=== PATIENT | female | born 1950 | race Two or more races ===

== ENCOUNTER → 2024-03-30 | Outpatient (CLI) | payer OTHER, SELFPAY ==
[2024-03-30 16:27] LABS: Anion Gap 6 (7-16); BUN/Creatinine Ratio 20 Ratio (12-20); Blood Urea Nitrogen 22 mg/dL (9-23); Calcium 9.5 mg/dL (8.3-10.6); Carbon Dioxide 25.7 mMol/L (20.0-31.0); Chloride 106 mMol/L (98-107); Creatinine (Component) 1.1 mg/dL (0.6-1.3); Glucose 92 mg/dL (74-106); Osmolality,Calculated 278 (275-295); Potassium 4.4 mMol/L (3.4-5.1); Sodium 138 mMol/L (136-145); eGFR 53 See Note
== END | disposition home or self-care (01) ==
PROVIDERS: PCP Family Medicine; Referring Provider Family Medicine; Visit Provider Family Medicine
DX: N18.2 Chronic kidney disease, stage 2 (mild) (principal)
CPT/HCPCS: 36415; 80048

== ENCOUNTER → 2024-04-14 | Outpatient (CLI) | payer OTHER, SELFPAY ==
--- NOTE | 2024-04-14 16:28 | XR_ITS ---
Examination: PA lateral chest 2 views Technique: Upright AP lateral chest 2 views Exam date and time: April 14, 2024 1717 hrs. Indications: Coughing congestion 2 months. Findings: Pneumonia in the posterior basal segment left lower lobe Right lung clear Normal heart size Impression: Pneumonia posterior basal segment left lower lobe
== END | disposition home or self-care (01) ==
LOC: CDIM 16:24
PROVIDERS: Referring Provider Family Medicine; Visit Provider Family Medicine
DX: J18.9 Pneumonia, unspecified organism (principal)
CPT/HCPCS: 71046

== ENCOUNTER → 2024-09-04 | Outpatient (CLI) | payer OTHER, SELFPAY ==
[2024-09-04 10:59] LABS: Anion Gap 10 (7-16); BUN/Creatinine Ratio 14 Ratio (12-20); Blood Urea Nitrogen 15 mg/dL (9-23); Calcium 9.4 mg/dL (8.3-10.6); Carbon Dioxide 25.1 mMol/L (20.0-31.0); Chloride 103 mMol/L (98-107); Creatinine (Component) 1.1 mg/dL (0.6-1.3); Glucose 105 mg/dL (74-106); Osmolality,Calculated 276 (275-295); Potassium 4.5 mMol/L (3.4-5.1); Sodium 138 mMol/L (136-145); eGFR 53 See Note
== END | disposition home or self-care (01) ==
LOC: COPL 09:54
PROVIDERS: PCP Family Medicine; Referring Provider Family Medicine; Visit Provider Family Medicine
DX: N18.2 Chronic kidney disease, stage 2 (mild) (principal)
CPT/HCPCS: 36415; 80048

== ENCOUNTER → 2025-03-27 | Outpatient (CLI) | payer OTHER, SELFPAY ==
--- NOTE | 2025-03-27 13:54 | XR_ITS ---
EXAMINATION: PA lateral chest 2 views TECHNIQUE: Upright PA lateral chest 2 views Date and time: March 27, 2025, 1430 hours INDICATIONS: Coughing beginning 2 weeks ago. FINDINGS: Normal heart size No pneumonia or pulmonary edema Moderate thoracic spondylosis IMPRESSION: No pneumonia identified
--- NOTE | 2025-03-27 13:54 | XR_ITS ---
EXAMINATION: Right wrist 2 views TECHNIQUE: AP lateral right wrist 2 views Date and time: March 27, 2025, 1433 hours, comparison July 11, 2021 INDICATIONS: Wrist pain beginning 1 week ago. FINDINGS: Healed fracture distal radial metaphysis Moderate to advanced narrowing radiocarpal joint No acute fracture No avascular necrosis IMPRESSION: Moderate to advanced narrowing radiocarpal joint
[2025-03-27 15:32] LABS: Anion Gap 12 (7-16); BUN/Creatinine Ratio 30 Ratio (12-20); Blood Urea Nitrogen 30 mg/dL (9-23); Calcium 9.1 mg/dL (8.3-10.6); Carbon Dioxide 27.2 mMol/L (20.0-31.0); Cardiac Risk Estimate 3.1 RATIO (3.7-5.6); Chloride 104 mMol/L (98-107); Cholesterol 203 mg/dL (132-200); Creatinine (Component) 1.0 mg/dL (0.6-1.3); Glucose 91 mg/dL (74-106); HDL Cholesterol 66 mg/dL (40-60); LDL Cholesterol,Calculated 120 mg/dL (0-130); Osmolality,Calculated 291 (275-295); Potassium 3.9 mMol/L (3.4-5.1); Sodium 143 mMol/L (136-145); Triglycerides 87 mg/dL (30-150); eGFR 59 See Note
== END | disposition home or self-care (01) ==
LOC: CDIM 13:41 → COPL 14:41
PROVIDERS: PCP Family Medicine; Referring Provider Student in an Organized Health Care Education/Training Program; Visit Provider Radiology Diagnostic Radiology
DX: R05.3 Chronic cough (principal); M25.831 Other specified joint disorders, right wrist; I12.9 Hypertensive chronic kidney disease with stage 1 through stage 4 chronic kidney disease, or unspecified chronic kidney disease; N18.2 Chronic kidney disease, stage 2 (mild)
CPT/HCPCS: 36415; 71046; 73100; 80048; 80061